=== PATIENT | female | born 2000 | race Caucasian/White ===

== ENCOUNTER 2022-12-12 12:24 | Outpatient (REF) | payer OTHER, SELFPAY ==
[2022-12-13 08:17] LABS: ~Hepatitis B Surface Antibody REACTIVE (Nonreactive)
== END 2022-12-12 12:25 | disposition home or self-care (01) ==
LOC: HO.HMGCLDS 12:24
PROVIDERS: PCP Internal Medicine; Visit Provider Internal Medicine
DX: Z01.84 Encounter for antibody response examination (principal)
CPT/HCPCS: 36415; 86706; 86787